=== PATIENT | female | born 1975 | race African-American/Black ===

== ENCOUNTER 2018-12-30 11:26 | Inpatient (IN) | payer MEDICAID ==
[~2018-12-30] VITALS: Ht 170.2 cm; Wt 67.1 kg
[2018-12-30] MEDS ORDERED: BACL5TAB PO (11:34)
[2018-12-30] MEDS ORDERED: SODIUM CHLORIDE 0.9% 1,000 ML IV ONE (11:46)
[2018-12-30] MEDS ORDERED: PIPERACILLIN/TAZ 3.375G PREMIX 50 ML IV ONE (12:00)
[2018-12-30] MEDS ORDERED: VANCOMYCIN 1 G PREMIX 200 ML IV ONE (12:00)
[2018-12-30] MEDS ORDERED: BACLOFEN 10MG TABLET PO ONE (12:45)
[2018-12-30 13:07] LABS: MEAN CORPUSCULAR HEMOGLOBIN 15.2 pg (28.0-32.0); MEAN CORPUSCULAR VOLUME 56.5 fL (81.0-99.0); RED CELL DISTRIBUTION WIDTH 26.3 % (11.6-14.6)
[2018-12-30 13:14] LABS: CHLORIDE 111 mEq/L (98-107)
[2018-12-30 13:17] LABS: PARTIAL THROMBOPLASTIN TIME 25.3 sec (23.4-31.0); PROTHROMBIN TIME 10.6 sec (9.6-11.0)
[2018-12-30 13:18] LABS: ETHANOL BLOOD < 10 mg/dL; HCG SCREEN NEGATIVE
[2018-12-30 13:19] LABS: HEMATOCRIT. 18.1 % (36.0-48.0); HEMOGLOBIN. 4.9 g/dL (12.0-16.0)
[2018-12-30 13:34] LABS: CLARITY URINE CLEAR (CLEAR); COLOR URINE YELLOW (YELLOW); KETONES URINE NEGATIVE (NEGATIVE); LEUKOCYTE ESTERASE URINE 2+ (NEGATIVE); NITRITE URINE NEGATIVE (NEGATIVE); OCCULT BLOOD URINE NEGATIVE (NEGATIVE); PH URINE 6.5 (4.5-8.0); PROTEIN URINE NEGATIVE (NEGATIVE); SPECIFIC GRAVITY URINE 1.003 (1.005-1.030); UROBILINOGEN URINE 0.2 E.U./dL (0.2-1.0)
[2018-12-30 13:46] LABS: *AMPHETAMINES SCREEN URINE NEGATIVE (NEGATIVE); *BARBITURATES SCREEN URINE NEGATIVE (NEGATIVE); *BENZODIAZEPINES SCREEN URINE NEGATIVE (NEGATIVE); *COCAINE SCREEN URINE NEGATIVE (NEGATIVE)
[2018-12-30 13:46] LABS: PLATELET ESTIMATE NORMAL
[2018-12-30 13:47] LABS: MEAN PLATELET VOLUME 9.4 fl (7.4-10.4); PLATELET 218 x1000/uL (130-400)
[2018-12-30 13:47] LABS: CANNABINOID URINE SCREEN NEGATIVE (NEGATIVE); METHADONE URINE SCREEN NEGATIVE (NEGATIVE); OPIATES URINE SCREEN NEGATIVE (NEGATIVE); PHENCYCLIDINE URINE SCREEN NEGATIVE (NEGATIVE)
[2018-12-30] MEDS ORDERED: CLONIDINE 0.1MG TABLET PO PRN (19:45)
[2018-12-30] MEDS ORDERED: IPRATROPIUM/ALBUTEROL 0.5-3(2.5)MG/3ML NEB INH PRN (19:45)
[2018-12-30] MEDS ORDERED: ONDANSETRON HCL 4MG/2ML INJ IV PRN (19:45)
[2018-12-30] MEDS ORDERED: LORAZEPAM 0.5MG TABLET PO PRN (19:45)
[2018-12-30] MEDS ORDERED: ACETAMINOPHEN 325MG TABLET PO PRN (19:45)
[2018-12-30] MEDS ORDERED: DOCUSATE SODIUM 100MG CAPSULE PO PRN (19:45)
[2018-12-30 21:42] LABS: PHOSPHORUS 2.9 mg/dL (2.5-4.9)
[2018-12-30 21:55] VITALS: BP 103/60
[2018-12-30] MEDS: PIPERACILLIN/TAZ 3.375G PREMIX 50 ML IV SCH (23:29)
[2018-12-30] MEDS: SODIUM CHLORIDE 0.9% 1,000 ML IV SCH (23:30)
[2018-12-31] VITALS (9 sets, daily range): BP systolic 92–148; BP diastolic 42–98
[2018-12-31] MEDS: HYDROCODONE/ACETAMINOPHEN 5/325MG TABLET PO PRN ×3 (06:23→18:14)
[2018-12-31] MEDS: PIPERACILLIN/TAZ 3.375G PREMIX 50 ML IV SCH ×2 (06:41→15:00)
[2018-12-31 09:01] LABS: MEAN CORPUSCULAR HEMOGLOBIN 17.9 pg (28.0-32.0); MEAN CORPUSCULAR VOLUME 60.8 fL (81.0-99.0); RED BLOOD CELL COUNT 2.78 mill/uL (4.2-5.4); RED CELL DISTRIBUTION WIDTH 33.2 % (11.6-14.6)
[2018-12-31 09:39] LABS: CHLORIDE 111 mEq/L (98-107)
[2018-12-31] MEDS: BACLOFEN 10MG TABLET PO SCH ×3 (09:48→17:28)
[2018-12-31 10:07] LABS: HEMATOCRIT. 16.9 % (36.0-48.0)
[2018-12-31 10:30] LABS: PLATELET ESTIMATE NORMAL
[2018-12-31 10:31] LABS: MEAN PLATELET VOLUME 9.1 fl (7.4-10.4); PLATELET 165 x1000/uL (130-400)
[2018-12-31] MEDS ORDERED: POTASSIUM CHLORIDE 20MEQ TABLET SR PO NR (12:34)
[2018-12-31] MEDS ORDERED: NA PHOS,M-B/NA PHOS,DI-BA ENEMA 118ML PR PRN (13:30)
[2018-12-31] MEDS: POLYETHYLENE GLYCOL 3350 (17GM) 1 DOSE PACK PO SCH (14:12)
[2018-12-31] MEDS ORDERED: MAGNESIUM 4 G PREMIX 100 ML IV NR (16:00)
[2018-12-31 21:11] LABS: HEMATOCRIT 20.8 % (36.0-48.0); HEMOGLOBIN 6.6 g/dL (12.0-16.0)
[2018-12-31 21:17] LABS: INR 1.1; PROTHROMBIN TIME 10.8 sec (9.6-11.0)
[2018-12-31 21:38] LABS: TOTAL IRON BINDING CAPACITY 370 ug/dL (250-450)
[2018-12-31 22:17] LABS: CARCINO EMBRYONIC ANTIGEN 0.7 ng/ml
[2019-01-01] VITALS (9 sets, daily range): BP systolic 90–112; BP diastolic 48–69
[2019-01-01] MEDS: BACLOFEN 10MG TABLET PO SCH ×4 (00:54→17:24)
[2019-01-01] MEDS: SODIUM CHLORIDE 0.9% 1,000 ML IV SCH ×2 (00:54→14:10)
[2019-01-01] MEDS: PIPERACILLIN/TAZ 3.375G PREMIX 50 ML IV SCH ×3 (00:54→17:24)
[2019-01-01 06:20] LABS: BASOPHILS % 1.1 % (0.0-2.0); EOSINOPHILS % 2.8 % (0.0-5.0); LYMPHOCYTES % 33.3 % (20.0-50.0); MEAN CORPUSCULAR HEMOGLOBIN 20.6 pg (28.0-32.0); MEAN CORPUSCULAR VOLUME 65.2 fL (81.0-99.0); MONOCYTES % 11.2 % (2.0-8.0); NEUTROPHILS % 51.6 % (40.0-76.0); RED BLOOD CELL COUNT 2.82 mill/uL (4.2-5.4); RED CELL DISTRIBUTION WIDTH 33.1 % (11.6-14.6)
[2019-01-01 06:39] LABS: HEMATOCRIT. 18.4 % (36.0-48.0); HEMOGLOBIN. 5.8 g/dL (12.0-16.0)
[2019-01-01 07:20] LABS: CHLORIDE 113 mEq/L (98-107)
[2019-01-01 07:29] LABS: MEAN PLATELET VOLUME 9.8 fl (7.4-10.4)
[2019-01-01 07:30] LABS: PLATELET 167 x1000/uL (130-400)
[2019-01-01 07:31] LABS: PHOSPHORUS 3.5 mg/dL (2.5-4.9)
[2019-01-01] MEDS: POLYETHYLENE GLYCOL 3350 (17GM) 1 DOSE PACK PO SCH (10:53)
[2019-01-01] MEDS: HYDROCODONE/ACETAMINOPHEN 5/325MG TABLET PO PRN ×2 (16:31→22:57)
[2019-01-01] MEDS ORDERED: BISACODYL 5MG TABLET PO PRN (17:45)
[2019-01-01] MEDS: ASCORBIC ACID 500 MG TABLET PO SCH (22:56)
[2019-01-01] MEDS: IRON SUCROSE COMPLEX 100 MG/5 ML ML IV SCH (22:56)
[2019-01-02] VITALS (7 sets, daily range): BP systolic 84–112; BP diastolic 43–85
[2019-01-02] MEDS: PIPERACILLIN/TAZ 3.375G PREMIX 50 ML IV SCH ×3 (00:24→17:09)
[2019-01-02] MEDS: BACLOFEN 10MG TABLET PO SCH ×4 (00:25→17:12)
[2019-01-02 00:27] LABS: HEMATOCRIT 23.3 % (36.0-48.0); HEMOGLOBIN 7.6 g/dL (12.0-16.0)
[2019-01-02] MEDS: SODIUM CHLORIDE 0.9% 1,000 ML IV SCH ×2 (03:21→17:13)
[2019-01-02] MEDS: ASCORBIC ACID 500 MG TABLET PO SCH ×2 (09:28→21:33)
[2019-01-02] MEDS: IRON SUCROSE COMPLEX 100 MG/5 ML ML IV SCH (09:28)
[2019-01-02] MEDS: POLYETHYLENE GLYCOL 3350 (17GM) 1 DOSE PACK PO SCH (09:29)
[2019-01-02] MEDS: DOCUSATE SODIUM 250MG CAPSULE PO SCH ×2 (09:29→17:11)
[2019-01-02] MEDS ORDERED: GADOBENATE DIMEGLUMINE 529 MG/ML 10ML IV ONE (10:32)
[2019-01-02] MEDS: HYDROCODONE/ACETAMINOPHEN 5/325MG TABLET PO PRN (15:05)
[2019-01-03] VITALS: BP 106/56
[2019-01-03] MEDS: BACLOFEN 10MG TABLET PO SCH ×4 (00:44→17:14)
[2019-01-03] MEDS: PIPERACILLIN/TAZ 3.375G PREMIX 50 ML IV SCH ×3 (03:36→17:14)
[2019-01-03 04:00] VITALS: BP 92/50
[2019-01-03 06:11] LABS: BASOPHILS % 1.3 % (0.0-2.0); EOSINOPHILS % 1.7 % (0.0-5.0); HEMATOCRIT. 24.1 % (36.0-48.0); HEMOGLOBIN. 7.7 g/dL (12.0-16.0); LYMPHOCYTES % 14.3 % (20.0-50.0); MEAN CORPUSCULAR VOLUME 69.4 fL (81.0-99.0); MONOCYTES % 8.1 % (2.0-8.0); NEUTROPHILS % 74.6 % (40.0-76.0); RED BLOOD CELL COUNT 3.48 mill/uL (4.2-5.4); RED CELL DISTRIBUTION WIDTH 35.3 % (11.6-14.6)
[2019-01-03] MEDS: SODIUM CHLORIDE 0.9% 1,000 ML IV SCH ×2 (06:18→21:16)
[2019-01-03 06:25] LABS: CHLORIDE 111 mEq/L (98-107)
[2019-01-03 08:00] VITALS: BP 91/41
[2019-01-03] MEDS ORDERED: IRON SUCROSE COMPLEX 100 MG/5 ML ML IV SCH (09:23)
[2019-01-03] MEDS: ASCORBIC ACID 500 MG TABLET PO SCH ×2 (09:31→21:16)
[2019-01-03] MEDS: DOCUSATE SODIUM 250MG CAPSULE PO SCH ×2 (09:31→17:14)
[2019-01-03] MEDS: POLYETHYLENE GLYCOL 3350 (17GM) 1 DOSE PACK PO SCH (09:31)
[2019-01-03] MEDS: IRON SUCROSE COMPLEX 100 MG/5 ML ML IV SCH (09:31)
[2019-01-03 11:59] VITALS: BP 90/50
[2019-01-03] MEDS: HYDROCODONE/ACETAMINOPHEN 5/325MG TABLET PO PRN (12:41)
[2019-01-03 13:29] LABS: MEAN PLATELET VOLUME 9.6 fl (7.4-10.4); PLATELET 212 x1000/uL (130-400)
[2019-01-03 16:00] VITALS: BP 97/55
[2019-01-03 20:00] VITALS: BP 99/60
[2019-01-04] MEDS: PIPERACILLIN/TAZ 3.375G PREMIX 50 ML IV SCH ×3 (02:52→18:09)
[2019-01-04] MEDS: BACLOFEN 10MG TABLET PO SCH ×4 (02:52→18:09)
[2019-01-04 04:00] VITALS: BP 102/50
[2019-01-04 07:16] LABS: BASOPHILS % 1.2 % (0.0-2.0); HEMATOCRIT. 24.6 % (36.0-48.0); HEMOGLOBIN. 7.8 g/dL (12.0-16.0); LYMPHOCYTES % 14.2 % (20.0-50.0); MEAN CORPUSCULAR HEMOGLOBIN 22.3 pg (28.0-32.0); MEAN CORPUSCULAR VOLUME 70.6 fL (81.0-99.0); MEAN PLATELET VOLUME 9.7 fl (7.4-10.4); MONOCYTES % 7.5 % (2.0-8.0); NEUTROPHILS % 75.1 % (40.0-76.0); PLATELET 189 x1000/uL (130-400); RED BLOOD CELL COUNT 3.49 mill/uL (4.2-5.4); RED CELL DISTRIBUTION WIDTH 36.2 % (11.6-14.6)
[2019-01-04 07:55] LABS: CHLORIDE 110 mEq/L (98-107)
[2019-01-04 08:00] VITALS: BP 109/62
[2019-01-04] MEDS: POLYETHYLENE GLYCOL 3350 (17GM) 1 DOSE PACK PO SCH (09:03)
[2019-01-04] MEDS: DOCUSATE SODIUM 250MG CAPSULE PO SCH ×2 (09:03→18:09)
[2019-01-04] MEDS: ASCORBIC ACID 500 MG TABLET PO SCH ×2 (09:03→21:46)
[2019-01-04 12:00] VITALS: BP 95/44
[2019-01-04 14:39] VITALS: BP 95/44
[2019-01-04 16:00] VITALS: BP 100/55
[2019-01-04] MEDS: SODIUM CHLORIDE 0.9% 1,000 ML IV SCH ×2 (18:09→21:47)
[2019-01-04 20:00] VITALS: BP 106/68
[2019-01-05] VITALS: BP 100/55
[2019-01-05] MEDS: BACLOFEN 10MG TABLET PO SCH ×2 (00:39→05:53)
[2019-01-05] MEDS: PIPERACILLIN/TAZ 3.375G PREMIX 50 ML IV SCH ×2 (00:39→08:57)
[2019-01-05 04:00] VITALS: BP 100/38
[2019-01-05] MEDS ORDERED: POTASSIUM CHLORIDE 20MEQ TABLET SR PO NR (06:30)
[2019-01-05 08:00] VITALS: BP 120/66
[2019-01-05] MEDS: POLYETHYLENE GLYCOL 3350 (17GM) 1 DOSE PACK PO SCH (08:57)
[2019-01-05] MEDS: ASCORBIC ACID 500 MG TABLET PO SCH (08:57)
[2019-01-05] MEDS: DOCUSATE SODIUM 250MG CAPSULE PO SCH (08:58)
[2019-01-05 10:26] LABS: BASOPHILS % 1.1 % (0.0-2.0); EOSINOPHILS % 1.1 % (0.0-5.0); HEMATOCRIT. 27.7 % (36.0-48.0); HEMOGLOBIN. 8.6 g/dL (12.0-16.0); LYMPHOCYTES % 11.1 % (20.0-50.0); MEAN CORPUSCULAR HEMOGLOBIN 22.5 pg (28.0-32.0); MEAN CORPUSCULAR VOLUME 72.2 fL (81.0-99.0); MONOCYTES % 5.7 % (2.0-8.0); PLATELET 243 x1000/uL (130-400); RED BLOOD CELL COUNT 3.84 mill/uL (4.2-5.4); RED CELL DISTRIBUTION WIDTH 37.6 % (11.6-14.6)
[2019-01-05 11:32] LABS: CHLORIDE 111 mEq/L (98-107)
[2019-01-09 13:15] LABS: HGB A 98.1 % (96.4-98.8); HGB A2 1.9 % (1.8-3.2); HGB SOLUBILITY Negative (Negative)
== END 2019-01-05 11:20 | disposition home or self-care (01) | DRG 466 ==
LOC: ER 11:26 → 7WST 16:25 → EDBEDREQ 16:27 → ENRESERV 20:10
PROVIDERS: ADMIT Internal Medicine; ATTEND Internal Medicine
PROC: 30233N1 Transfusion of Nonautologous Red Blood Cells into Peripheral Vein, Percutaneous Approach (ICD-10-PCS; principal; 2018-12-30)
PROC: 4A00X4Z Measurement of Central Nervous Electrical Activity, External Approach (ICD-10-PCS; 2019-01-05)
DX: T83.511A Infection and inflammatory reaction due to indwelling urethral catheter, initial encounter (principal); G82.20 Paraplegia, unspecified; E83.42 Hypomagnesemia; E87.8 Other disorders of electrolyte and fluid balance, not elsewhere classified; G35 Multiple sclerosis; E87.6 Hypokalemia; N21.0 Calculus in bladder; R19.00 Intra-abdominal and pelvic swelling, mass and lump, unspecified site; K56.41 Fecal impaction; N83.202 Unspecified ovarian cyst, left side; N94.89 Other specified conditions associated with female genital organs and menstrual cycle; Z99.3 Dependence on wheelchair; D25.9 Leiomyoma of uterus, unspecified; D50.9 Iron deficiency anemia, unspecified; Y84.6 Urinary catheterization as the cause of abnormal reaction of the patient, or of later complication, without mention of misadventure at the time of the procedure; Y92.89 Other specified places as the place of occurrence of the external cause
CPT/HCPCS: 36415; 70553; 71045; 72156; 74176; 76856; 80048; 80061; 80305; 80320; 82270; 82378; 82728; 83021; 83036; 83540; 83550; 83605; 83735; 83880; 84100; 84145; 84443; 84484; 84703; 85014; 85018; 85044; 85049; 85384; 85660; 86304; 86850; 86900; 86920; 87077; 87186; 93005; 96365; 96375; 97163; 97166; 97530; 99285; A9577; C1893; J2543; J3370; J3475; J7030; J7040; J7050; P9016; A4315; G0480